=== PATIENT | male | born 1955 | race Caucasian/White ===

== ENCOUNTER → 2016-05-18 | Day surgery (SDC) | payer OTHER ==
[~2016-05-18] VITALS: Ht 180.3 cm; Wt 113.3 kg
[~2016-05-18] MED LIST: ASPIRIN EC81 MG PO; CALCIUM CARBON600 MG PO; FLONASE 50 MCG/16 GM INH; HYDROCHLOROTH12.5 MG PO; PRILOSEC20 MG PO; VITAMIN D32000 UNIT PO; ZOCOR20 MG PO
== END | disposition disaster alternative care site (69) ==
LOC: GPOC 05-13 16:00 → GEND 09:49 → GPOC 16:00
PROC: 0DBE8ZX Excision of Large Intestine, Via Natural or Artificial Opening Endoscopic, Diagnostic (ICD-10-PCS; principal; 2016-05-18)
DX: Z12.11 Encounter for screening for malignant neoplasm of colon (principal); D12.3 Benign neoplasm of transverse colon; K57.30 Diverticulosis of large intestine without perforation or abscess without bleeding; K64.8 Other hemorrhoids; K21.9 Gastro-esophageal reflux disease without esophagitis; I10 Essential (primary) hypertension; G47.33 Obstructive sleep apnea (adult) (pediatric)
CPT/HCPCS: J2001; J7030

== ENCOUNTER → 2016-08-31 | Outpatient (CLI) | payer OTHER ==
--- NOTE | ~2016-08-31 | PUL ---
PATIENT'S NAME: MERON HONEY Rhoda [facility] AGE: 60 Y [address] ROOM: [place] [id number] LOCATION: [facility] ADMIT DATE: 08/31/2016 Pulmonary DISCHARGE DATE: FAMILY PHYSICIAN: PHAN CAMARGO MD ATTENDING PHYSICIAN: PHAN CAMARGO NAME OF PROCEDURE: Home sleep study DATE OF PROCEDURE: 08/31/16 TECH: Rafy Rodrigues [facility] [[email or web address]] SUMMARY: Patient underwent home sleep testing using a type III device and was studied for 7 hours 2 minutes. There were 37 apneas and 71 hypopneas. For an apnea/hypopnea index moderately elevated at 15.4 events per hour. Oxygen saturations ranged from 80-93%. Heart rate ranged from 48-92 beats per minute. IMPRESSION: Mild obstructive sleep apnea, borderline moderate. PLAN: Patient will receive results from the ordering provider. MD RAMÓN PERKINS/ /[id number] dtt: 09/20/16 1301 , Rohan Mg dtd: 09/05/16 1138
== END | disposition disaster alternative care site (69) ==
LOC: GSLP 08-30 15:00
DX: G47.19 Other hypersomnia (principal); D75.1 Secondary polycythemia; G47.8 Other sleep disorders; G47.33 Obstructive sleep apnea (adult) (pediatric); R51 Headache; R06.83 Snoring
CPT/HCPCS: G0399